=== PATIENT | female | born 1945 | race Two or more races ===

== ENCOUNTER 2017-12-25 06:00 | Day surgery (SDC) | payer OTHER ==
[~2017-12-25 06:00] MED LIST: CYMBALTA30 MG; LOSARTAN POTAS100 MG; PRAVACHOL80 MG; [UNRECOGNIZED DRUG - OTHER]
[2017-12-25] MEDS ORDERED: TRAM1TAB98 PO (09:42)
[2017-12-25] MEDS ORDERED: DUI500 PO (09:42)
== END 2017-12-25 16:20 | disposition home or self-care (01) ==
LOC: CIR.AMB 06:00
DX: M23.322 Other meniscus derangements, posterior horn of medial meniscus, left knee (principal); M23.352 Other meniscus derangements, posterior horn of lateral meniscus, left knee; M17.12 Unilateral primary osteoarthritis, left knee